=== PATIENT | male | born 1985 | race Caucasian/White ===

== ENCOUNTER 2017-05-08 16:33 | Inpatient (IN) | payer MEDICAID, OTHER ==
[~2017-05-08] VITALS: Ht 180.3 cm; Wt 74.0 kg
[2017-05-08] MEDS ORDERED: ONDANSETRON 2MG/ML, 2ML IVPush ONE (17:00)
[2017-05-08] MEDS ORDERED: MORPHINE SULFATE 4 MG/ML, 1ML IVPush PRN (17:00)
[2017-05-08] MEDS ORDERED: SODIUM CHLORIDE FLUSH 10ML SYR IVF ONE ×2 (17:00→19:00)
[2017-05-08] MEDS ORDERED: SODIUM CHLORIDE 0.9% 1,000ML IVBOLUS ONE (17:00)
[2017-05-08 17:12] LABS: BASOPHILS # (AUTO) 0.03 x10^3/uL (0-0.1); BASOPHILS % (AUTO) 0 % (0-1); EOSINOPHILS # (AUTO) 0.12 x10^3/uL (0-0.4); EOSINOPHILS % (AUTO) 2 % (1-7); LYMPHOCYTES # (AUTO) 0.83 x10^3/uL (1-3.4); LYMPHOCYTES % (AUTO) 11 % (22-44); MD NO; MEAN CORPUSCULAR HEMOGLOBIN 32.4 pg (27.5-34.5); MEAN CORPUSCULAR HGB CONC 34.1 g/dL (33.2-36.2); MEAN CORPUSCULAR VOLUME 95.1 fL (81-97); MEAN PLATELET VOLUME 7.1 fL (7.4-10.4); MONOCYTES # (AUTO) 0.56 x10^3/uL (0.2-0.8); MONOCYTES % (AUTO) 8 % (2-9); NEUTROPHILS # (AUTO) 5.81 x10^3/uL (1.8-6.8); NEUTROPHILS % (AUTO) 79 % (42-75); PLATELET COUNT 282 x10^3/uL (130-400); RED BLOOD COUNT 4.18 x10^6/uL (4.38-5.82); RED CELL DISTRIBUTION WIDTH 12.9 % (9.4-14.8)
[2017-05-08 17:24] LABS: ALBUMIN 3.1 g/dL (3.4-5.0); ANION GAP 12 mmol/L (5-15); CALCIUM 8.7 mg/dL (8.5-10.1); CHLORIDE 102 mmol/L (98-107); CREATININE 0.64 mg/dL (0.7-1.3)
[2017-05-08] MEDS ORDERED: OMNIPAQUE 350 MG/ML, 75ML BOTTLE ONE (17:49)
[2017-05-08] MEDS ORDERED: AMPICILLIN/SULBACTAM 3 GM in SODIUM CHLORIDE 0.9% 100 ML IV ONE (18:30)
[2017-05-08] MEDS ORDERED: VANCOMYCIN PER PHARMACY MC PRN ×2 (18:30→20:30)
[2017-05-08] MEDS ORDERED: VANCOMYCIN 1,400 MG in SODIUM CHLORIDE 0.9% 250 ML IV ONE (18:30)
[2017-05-08] MEDS ORDERED: MAGNESIUM SULFATE 1 GM, FOLIC ACID 1 MG, MVI ADULT 10 ML in SODIUM CHLORIDE 0.9% 1,000 ML IV ONE (19:00)
[2017-05-08] MEDS ORDERED: THIAMINE 100MG TABLET PO ONE (19:00)
[2017-05-08] MEDS ORDERED: LORazepam 2 MG/ML, 1ML IVPush PRN (19:00)
[2017-05-08] MEDS ORDERED: THIAMINE 100MG TABLET ONE (19:57)
[2017-05-08] MEDS ORDERED: POTASSIUM CHLORIDE 20 MEQ, MAGNESIUM SULFATE 2 GM, MVI ADULT 10 ML, FOLIC ACID 1 MG in ... IV SCH (20:21)
[2017-05-08 20:30] VITALS: BP 128/81
[2017-05-08] MEDS ORDERED: ACETAMINOPHEN 325 MG TABLET PO PRN (20:30)
[2017-05-08] MEDS ORDERED: LORazepam 2 MG/ML, 1ML IV PRN ×4 (20:30)
[2017-05-08] MEDS ORDERED: ENOXAPARIN 40 MG/0.4 ML SQ SCH (20:30)
[2017-05-08] MEDS ORDERED: DOCUSATE 100 MG CAPSULE PO PRN (20:30)
[2017-05-08] MEDS ORDERED: hydrALAzine 20 MG/ML, 1ML IVPush PRN (20:30)
[2017-05-08] MEDS ORDERED: ONDANSETRON 2MG/ML, 2ML IVPush PRN (20:30)
[2017-05-08] MEDS: D5%-0.9% NACL 1,000 ML IV SCH (20:45)
[2017-05-08] MEDS ORDERED: KETOROLAC 30 MG/1 ML IVPush PRN (21:00)
[2017-05-08] MEDS: LORazepam 2 MG/ML, 1ML IV PRN (21:17)
[2017-05-08] MEDS ORDERED: PHARMACOKINETIC CONSULTATION MC ONE (21:30)
[2017-05-08] MEDS ORDERED: PHARMACOKINETIC MONITORING MC PRN (21:30)
[2017-05-09] MEDS: AMPICILLIN/SULBACTAM 3 GM in SODIUM CHLORIDE 0.9% 100 ML IV SCH ×2 (03:01→11:43)
[2017-05-09 03:15] VITALS: BP 157/98
[2017-05-09] MEDS: D5%-0.9% NACL 1,000 ML IV SCH ×2 (03:40→08:02)
[2017-05-09 05:46] LABS: ALBUMIN 2.4 g/dL (3.4-5.0); ANION GAP 6 mmol/L (5-15); CALCIUM 7.9 mg/dL (8.5-10.1); CHLORIDE 106 mmol/L (98-107)
[2017-05-09 05:51] LABS: ALANINE AMINOTRANSFERASE 72 U/L (12-78); ALKALINE PHOSPHATASE 93 U/L (45-117); BILIRUBIN,TOTAL 0.4 mg/dL (0.2-1.0); CREATININE 0.55 mg/dL (0.7-1.3); TOTAL PROTEIN 6.3 g/dL (6.4-8.2)
[2017-05-09 06:02] LABS: BASOPHILS # (AUTO) 0.03 x10^3/uL (0-0.1); BASOPHILS % (AUTO) 1 % (0-1); EOSINOPHILS # (AUTO) 0.22 x10^3/uL (0-0.4); EOSINOPHILS % (AUTO) 4 % (1-7); LYMPHOCYTES # (AUTO) 0.98 x10^3/uL (1-3.4); LYMPHOCYTES % (AUTO) 18 % (22-44); MD NO; MEAN CORPUSCULAR HEMOGLOBIN 32.6 pg (27.5-34.5); MEAN PLATELET VOLUME 7.6 fL (7.4-10.4); MONOCYTES # (AUTO) 0.78 x10^3/uL (0.2-0.8); MONOCYTES % (AUTO) 14 % (2-9); NEUTROPHILS # (AUTO) 3.51 x10^3/uL (1.8-6.8); NEUTROPHILS % (AUTO) 64 % (42-75); PLATELET COUNT 227 x10^3/uL (130-400); RED CELL DISTRIBUTION WIDTH 12.5 % (9.4-14.8)
[2017-05-09 07:15] VITALS: BP 164/109
[2017-05-09] MEDS ORDERED: VANCOMYCIN 1,400 MG in SODIUM CHLORIDE 0.9% 250 ML IV SCH (07:30)
[2017-05-09] MEDS: LORazepam 2 MG/ML, 1ML IV PRN (08:01)
[2017-05-09] MEDS ORDERED: THIAMINE 100MG TABLET PO SCH (09:00)
[2017-05-09] MEDS ORDERED: MORPHINE SULFATE 4 MG/ML, 1ML ONE (09:29)
[2017-05-09] MEDS ORDERED: MORPHINE SULFATE 4 MG/ML, 1ML IVPush ONE (09:30)
[2017-05-09 10:17] VITALS: BP 159/90
[2017-05-09] MEDS ORDERED: morphine SULFATE 10 MG/ML, 1ML IVPush PRN (12:30)
== END 2017-05-09 13:10 | disposition left against medical advice (07) | DRG 602 ==
LOC: ED 18:58 → EDIP 19:21 → 4NOR 20:08
PROVIDERS: ADMIT Hospitalist; ATTEND Hospitalist
DX: L03.313 Cellulitis of chest wall (principal); E43 Unspecified severe protein-calorie malnutrition; D64.9 Anemia, unspecified; F10.10 Alcohol abuse, uncomplicated; F17.210 Nicotine dependence, cigarettes, uncomplicated; F11.90 Opioid use, unspecified, uncomplicated; Z59.0 Homelessness; Z68.21 Body mass index [BMI] 21.0-21.9, adult
CPT/HCPCS: 36415; 71260; 80048; 80053; 80307; 82040; 83605; 83735; 84100; 84145; 85025; 87040; 93306; 96361; 96365; 96375; J0295; J1650; J1885; J2405; J3370; J3475; J7042; Q9967; J2060; J7030; J7050

== ENCOUNTER 2018-03-25 12:28 | Inpatient (IN) | payer MEDICAID, OTHER ==
[~2018-03-25] VITALS: Ht 180.3 cm; Wt 83.3 kg
[2018-03-25 13:25] LABS: BASOPHILS # (AUTO) 0.03 x10^3/uL (0-0.1); BASOPHILS % (AUTO) 0 % (0-1); EOSINOPHILS % (AUTO) 0 % (1-7); LYMPHOCYTES # (AUTO) 0.52 x10^3/uL (1-3.4); LYMPHOCYTES % (AUTO) 7 % (22-44); MD NO; MEAN CORPUSCULAR HEMOGLOBIN 31.6 pg (27.5-34.5); MEAN CORPUSCULAR HGB CONC 34.8 g/dL (33.2-36.2); MEAN CORPUSCULAR VOLUME 90.9 fL (81-97); MEAN PLATELET VOLUME 6.8 fL (7.4-10.4); MONOCYTES # (AUTO) 0.39 x10^3/uL (0.2-0.8); MONOCYTES % (AUTO) 5 % (2-9); NEUTROPHILS # (AUTO) 6.62 x10^3/uL (1.8-6.8); NEUTROPHILS % (AUTO) 88 % (42-75); PLATELET COUNT 181 x10^3/uL (130-400); RED BLOOD COUNT 5.55 x10^6/uL (4.38-5.82); RED CELL DISTRIBUTION WIDTH 14.3 % (9.4-14.8)
[2018-03-25] MEDS ORDERED: SODIUM CHLORIDE FLUSH 10ML SYR IVF ONE (13:30)
[2018-03-25] MEDS ORDERED: SODIUM CHLORIDE 0.9% 1,000ML IVBOLUS ONE (13:30)
[2018-03-25] MEDS ORDERED: FAMOTIDINE 20 MG/2 ML IVP ONE (13:30)
[2018-03-25] MEDS ORDERED: ONDANSETRON 2MG/ML, 2ML IVPush ONE (13:30)
[2018-03-25] MEDS ORDERED: MAALOX/HYOSCYAMINE/LIDOCAINE 45 ML BTL PO ONE (13:30)
[2018-03-25 13:39] LABS: ALANINE AMINOTRANSFERASE 71 U/L (12-78); ALBUMIN 4.6 g/dL (3.4-5.0); ANION GAP 18 mmol/L (5-15); CALCIUM 9.3 mg/dL (8.5-10.1); CHLORIDE 96 mmol/L (98-107); CREATININE 0.91 mg/dL (0.7-1.3)
[2018-03-25 13:41] LABS: ALKALINE PHOSPHATASE 119 U/L (45-117); BILIRUBIN,TOTAL 0.8 mg/dL (0.2-1.0)
--- NOTE | 2018-03-25 13:41 | NUR ---
PT ARRIVES TO ED VIA EMS, PT REPORTS HE HAS BEEN ILL FOR A FEW DAYS WITH NO RELIEF. PT REPORTS THAT HE DRANK 1/2 A PINT YESTERDAY. PT DENIES TRUAMA. THINKS HE IS ILL WITH THE FLU. PT REPORTS NOT SEEIGN PCP. PT WAS WALKIGN AROUND DOWNTOWN WHEN HE BECAME ILL. PT CONNECTED TO [employer] AND CALL LIGHT IN REACH, PIV TO BE STARTED.
[2018-03-25] MEDS ORDERED: MAALOX/HYOSCYAMINE/LIDOCAINE 45 ML BTL ONE (13:48)
[2018-03-25] MEDS ORDERED: FAMOTIDINE 20 MG/2 ML ONE (13:48)
[2018-03-25] MEDS ORDERED: ONDANSETRON 2MG/ML, 2ML ONE (13:48)
--- NOTE | 2018-03-25 14:43 | NUR ---
MEDICATED PER EMAR.
--- NOTE | 2018-03-25 14:59 | NUR ---
PT RESTING IN ROOM, AWAITING FURTHER ORDERS.
--- NOTE | 2018-03-25 15:23 | NUR ---
CHART UP FOR RECHECK
[2018-03-25] MEDS ORDERED: LORazepam 2 MG/ML, 1ML ONE ×2 (15:25→17:34)
[2018-03-25] MEDS ORDERED: LORazepam 2 MG/ML, 1ML IVPush PRN (15:30)
[2018-03-25] MEDS ORDERED: THIAMINE 100 MG in SODIUM CHLORIDE 0.9% 50 ML IVPB ONE (15:30)
--- NOTE | 2018-03-25 15:33 | NUR ---
PT STARTED TO DRY HEAVE AND THIS RN NOTICED HIS HR IN 120'S, PT ASKED TO PLEASE MAKE SURE TO CLARIFY ETOH RECENT AND FORMER USE, PT REPORTED " IM NOT GONNA LIE TO YOU BROTHER I HAVE BEEN DRINKING 7 PINTS A DAY AND YESTERDAY AND TODAY I ONLY HAD 1/2 A PINT. BUT IM TRYING TO WEAN MYSELF OFF OF IT." PT REPORTS THAT HE HAS NOT USED HEROINE IN 15 MONTHS THOUGH.
[2018-03-25] MEDS ORDERED: SODIUM CHLORIDE FLUSH 10ML SYR IVF PRN (16:30)
[2018-03-25] MEDS ORDERED: POTASSIUM CHLORIDE 20 MEQ TAB.ER.PRT PO ONE ×2 (17:00)
[2018-03-25] MEDS ORDERED: LORazepam 1MG TABLET PO PRN ×4 (17:00)
[2018-03-25] MEDS ORDERED: LORazepam 2 MG/ML, 1ML IV PRN ×3 (17:00)
[2018-03-25] MEDS ORDERED: PANTOPRAZOLE 40 MG IV ONE (17:29)
[2018-03-25] MEDS ORDERED: POTASSIUM CHLORIDE 20 MEQ TAB.ER.PRT ONE (17:29)
[2018-03-25] MEDS ORDERED: POLYETHYLENE GLYCOL 17 GM PACKET PO PRN (17:30)
[2018-03-25] MEDS ORDERED: LABETALOL 5MG/ML, 20ML IVPush PRN (17:30)
[2018-03-25] MEDS: LORazepam 2 MG/ML, 1ML IV PRN ×2 (17:37→20:26)
[2018-03-25] MEDS: SODIUM CHLORIDE 0.9% 1,000 ML IV SCH (17:37)
[2018-03-25] MEDS: PANTOPRAZOLE 40 MG IV IVPush SCH (17:37)
--- NOTE | 2018-03-25 17:38 | NUR ---
SM ONLY WANTS 40MEQ POTASSIUM AT THIS TIME.
--- NOTE | 2018-03-25 18:04 | NUR ---
Break RN: Pt has very mild tremors, A&O x4, reports nausea improved. Waiting on ready room - pt updated.
[2018-03-25 18:12] LABS: FREE T4 (FREE THYROXINE) 0.93 ng/dL (0.76-1.46)
[2018-03-25 19:27] VITALS: BP 165/96
[2018-03-25] MEDS: CHLORDIAZEPOXIDE 25 MG CAPSULE PO PRN (19:35)
[2018-03-25] MEDS: ONDANSETRON ODT 4 MG PO PRN (19:35)
[2018-03-25] MEDS: POTASSIUM CHLORIDE 20 MEQ, MAGNESIUM SULFATE 1 GM, FOLIC ACID 1 MG, THIAMINE 200 MG, MV... IV SCH (19:50)
[2018-03-26] MEDS: LORazepam 2 MG/ML, 1ML IV PRN ×6 (00:34→20:44)
[2018-03-26] MEDS: ONDANSETRON ODT 4 MG PO PRN ×4 (00:34→17:21)
[2018-03-26 00:51] VITALS: BP 161/95
[2018-03-26] MEDS ORDERED: MAGNESIUM SULFATE PMX 2GM/50ML 50 ML IV ONE (02:00)
[2018-03-26] MEDS: PANTOPRAZOLE 40 MG IV IVPush SCH ×2 (04:58→17:27)
[2018-03-26] MEDS: CHLORDIAZEPOXIDE 25 MG CAPSULE PO PRN ×2 (06:15→20:07)
[2018-03-26 06:38] LABS: CHLORIDE 99 mmol/L (98-107)
[2018-03-26 06:51] LABS: ALANINE AMINOTRANSFERASE 51 U/L (12-78); ALBUMIN 3.8 g/dL (3.4-5.0); ALKALINE PHOSPHATASE 104 U/L (45-117); ANION GAP 9 mmol/L (5-15); BILIRUBIN,TOTAL 0.9 mg/dL (0.2-1.0); CALCIUM 8.2 mg/dL (8.5-10.1); CREATININE 0.77 mg/dL (0.7-1.3); TOTAL PROTEIN 7.6 g/dL (6.4-8.2)
[2018-03-26 07:20] VITALS: BP 147/96
[2018-03-26] MEDS: ONDANSETRON 2MG/ML, 2ML IVPush PRN ×3 (07:49→22:59)
[2018-03-26 08:00] LABS: BASOPHILS # (AUTO) 0.01 x10^3/uL (0-0.1); BASOPHILS % (AUTO) 0 % (0-1); EOSINOPHILS # (AUTO) 0.04 x10^3/uL (0-0.4); EOSINOPHILS % (AUTO) 1 % (1-7); LYMPHOCYTES # (AUTO) 0.86 x10^3/uL (1-3.4); LYMPHOCYTES % (AUTO) 25 % (22-44); MD NO; MEAN CORPUSCULAR HEMOGLOBIN 31.1 pg (27.5-34.5); MEAN CORPUSCULAR VOLUME 91.4 fL (81-97); MONOCYTES # (AUTO) 0.31 x10^3/uL (0.2-0.8); MONOCYTES % (AUTO) 9 % (2-9); NEUTROPHILS # (AUTO) 2.28 x10^3/uL (1.8-6.8); NEUTROPHILS % (AUTO) 65 % (42-75); PLATELET COUNT 159 x10^3/uL (130-400); RED BLOOD COUNT 4.86 x10^6/uL (4.38-5.82); RED CELL DISTRIBUTION WIDTH 14.2 % (9.4-14.8)
[2018-03-26] MEDS: SENNA/DOCUSATE TABLET PO SCH (09:00)
[2018-03-26] MEDS ORDERED: POTASSIUM CHLORIDE 20 MEQ TAB.ER.PRT PO ONE ×2 (10:00→12:30)
[2018-03-26] MEDS: SODIUM CHLORIDE 0.9% 1,000 ML IV SCH ×2 (11:59→17:29)
[2018-03-26 13:35] VITALS: BP 146/81
[2018-03-26 20:31] VITALS: BP 128/77
[2018-03-26] MEDS: POTASSIUM CHLORIDE 20 MEQ, MAGNESIUM SULFATE 1 GM, FOLIC ACID 1 MG, THIAMINE 200 MG, MV... IV SCH (20:45)
[2018-03-26] MEDS: NICOTINE 21 MG/24 HR PATCH.TD24 TD SCH (20:45)
[2018-03-27] MEDS: LORazepam 2 MG/ML, 1ML IV PRN ×6 (00:50→22:05)
[2018-03-27] MEDS ORDERED: ACETAMINOPHEN 325 MG TABLET PO ONE (01:00)
[2018-03-27 01:50] VITALS: BP 122/64
[2018-03-27] MEDS: PANTOPRAZOLE 40 MG IV IVPush SCH ×2 (04:54→16:51)
[2018-03-27] MEDS: ONDANSETRON 2MG/ML, 2ML IVPush PRN ×2 (04:54→22:04)
[2018-03-27 06:35] VITALS: BP 133/77
[2018-03-27 08:24] LABS: ALANINE AMINOTRANSFERASE 40 U/L (12-78); ALBUMIN 3.3 g/dL (3.4-5.0); ANION GAP 7 mmol/L (5-15); CALCIUM 8.3 mg/dL (8.5-10.1); CHLORIDE 108 mmol/L (98-107); CREATININE 0.77 mg/dL (0.7-1.3)
[2018-03-27 08:27] LABS: ALKALINE PHOSPHATASE 90 U/L (45-117); BILIRUBIN,TOTAL 0.9 mg/dL (0.2-1.0); TOTAL PROTEIN 6.7 g/dL (6.4-8.2)
[2018-03-27] MEDS: SENNA/DOCUSATE TABLET PO SCH (09:00)
[2018-03-27] MEDS: SODIUM CHLORIDE 0.9% 1,000 ML IV SCH ×2 (09:01→16:51)
[2018-03-27 09:19] LABS: BASOPHILS # (AUTO) 0.03 x10^3/uL (0-0.1); BASOPHILS % (AUTO) 1 % (0-1); EOSINOPHILS % (AUTO) 2 % (1-7); LYMPHOCYTES # (AUTO) 0.81 x10^3/uL (1-3.4); LYMPHOCYTES % (AUTO) 20 % (22-44); MD NO; MEAN CORPUSCULAR HEMOGLOBIN 31.3 pg (27.5-34.5); MEAN CORPUSCULAR HGB CONC 34.4 g/dL (33.2-36.2); MEAN PLATELET VOLUME 7.6 fL (7.4-10.4); MONOCYTES # (AUTO) 0.31 x10^3/uL (0.2-0.8); MONOCYTES % (AUTO) 8 % (2-9); NEUTROPHILS # (AUTO) 2.76 x10^3/uL (1.8-6.8); NEUTROPHILS % (AUTO) 69 % (42-75); PLATELET COUNT 140 x10^3/uL (130-400); RED BLOOD COUNT 4.55 x10^6/uL (4.38-5.82); RED CELL DISTRIBUTION WIDTH 14.5 % (9.4-14.8)
[2018-03-27] MEDS: ONDANSETRON ODT 4 MG PO PRN (12:13)
[2018-03-27 13:18] VITALS: BP 129/71
[2018-03-27] MEDS: CHLORDIAZEPOXIDE 25 MG CAPSULE PO PRN (15:32)
[2018-03-27 19:44] VITALS: BP 138/84
[2018-03-27] MEDS: POTASSIUM CHLORIDE 20 MEQ, MAGNESIUM SULFATE 1 GM, FOLIC ACID 1 MG, THIAMINE 200 MG, MV... IV SCH (21:56)
[2018-03-27] MEDS: NICOTINE 21 MG/24 HR PATCH.TD24 TD SCH (21:56)
[2018-03-28] MEDS: LORazepam 2 MG/ML, 1ML IV PRN ×2 (02:07→06:13)
[2018-03-28 04:05] VITALS: BP 124/78
[2018-03-28 06:07] LABS: BASOPHILS # (AUTO) 0.01 x10^3/uL (0-0.1); BASOPHILS % (AUTO) 0 % (0-1); EOSINOPHILS # (AUTO) 0.09 x10^3/uL (0-0.4); EOSINOPHILS % (AUTO) 2 % (1-7); LYMPHOCYTES # (AUTO) 0.89 x10^3/uL (1-3.4); LYMPHOCYTES % (AUTO) 19 % (22-44); MD NO; MEAN CORPUSCULAR HGB CONC 34.8 g/dL (33.2-36.2); MEAN CORPUSCULAR VOLUME 91.8 fL (81-97); MEAN PLATELET VOLUME 7.7 fL (7.4-10.4); MONOCYTES # (AUTO) 0.32 x10^3/uL (0.2-0.8); MONOCYTES % (AUTO) 7 % (2-9); NEUTROPHILS # (AUTO) 3.49 x10^3/uL (1.8-6.8); NEUTROPHILS % (AUTO) 73 % (42-75); PLATELET COUNT 132 x10^3/uL (130-400); RED BLOOD COUNT 4.26 x10^6/uL (4.38-5.82); RED CELL DISTRIBUTION WIDTH 14.4 % (9.4-14.8)
[2018-03-28] MEDS: SODIUM CHLORIDE 0.9% 1,000 ML IV SCH ×2 (06:13→14:35)
[2018-03-28] MEDS: ONDANSETRON 2MG/ML, 2ML IVPush PRN (06:13)
[2018-03-28] MEDS: PANTOPRAZOLE 40 MG IV IVPush SCH ×2 (06:13→16:11)
[2018-03-28 06:17] LABS: CHLORIDE 107 mmol/L (98-107)
[2018-03-28 06:31] LABS: ALANINE AMINOTRANSFERASE 35 U/L (12-78); ALBUMIN 3.4 g/dL (3.4-5.0); ALKALINE PHOSPHATASE 78 U/L (45-117); ANION GAP 7 mmol/L (5-15); BILIRUBIN,TOTAL 0.5 mg/dL (0.2-1.0); CALCIUM 8.7 mg/dL (8.5-10.1); CREATININE 0.71 mg/dL (0.7-1.3); TOTAL PROTEIN 6.4 g/dL (6.4-8.2)
[2018-03-28 07:47] VITALS: BP 125/71
[2018-03-28] MEDS: NICOTINE 21 MG/24 HR PATCH.TD24 TD SCH (08:12)
[2018-03-28] MEDS: SENNA/DOCUSATE TABLET PO SCH (08:13)
[2018-03-28] MEDS: CHLORDIAZEPOXIDE 25 MG CAPSULE PO SCH ×3 (08:13→20:01)
[2018-03-28 12:55] VITALS: BP 134/80
[2018-03-28] MEDS: LORazepam 0.5MG TABLET PO PRN ×2 (14:44→20:01)
[2018-03-28] MEDS: SUCRALFATE 1 GM/10 ML UDC PO SCH ×2 (16:11→20:01)
[2018-03-28] MEDS: POTASSIUM CHLORIDE 20 MEQ, MAGNESIUM SULFATE 1 GM, FOLIC ACID 1 MG, THIAMINE 200 MG, MV... IV SCH (20:02)
[2018-03-28 21:40] VITALS: BP 128/76
[2018-03-29 00:32] VITALS: BP 150/97
[2018-03-29] MEDS: ONDANSETRON ODT 4 MG PO PRN (00:42)
[2018-03-29] MEDS: LORazepam 0.5MG TABLET PO PRN (00:42)
[2018-03-29] MEDS: PANTOPRAZOLE 40 MG IV IVPush SCH (04:57)
[2018-03-29 06:17] LABS: BASOPHILS # (AUTO) 0.02 x10^3/uL (0-0.1); BASOPHILS % (AUTO) 0 % (0-1); EOSINOPHILS # (AUTO) 0.11 x10^3/uL (0-0.4); EOSINOPHILS % (AUTO) 2 % (1-7); LYMPHOCYTES # (AUTO) 0.79 x10^3/uL (1-3.4); LYMPHOCYTES % (AUTO) 15 % (22-44); MD NO; MEAN CORPUSCULAR HEMOGLOBIN 31.7 pg (27.5-34.5); MEAN CORPUSCULAR HGB CONC 34.6 g/dL (33.2-36.2); MEAN CORPUSCULAR VOLUME 91.7 fL (81-97); MEAN PLATELET VOLUME 7.7 fL (7.4-10.4); MONOCYTES # (AUTO) 0.38 x10^3/uL (0.2-0.8); MONOCYTES % (AUTO) 7 % (2-9); NEUTROPHILS # (AUTO) 3.98 x10^3/uL (1.8-6.8); NEUTROPHILS % (AUTO) 76 % (42-75); PLATELET COUNT 129 x10^3/uL (130-400); RED BLOOD COUNT 4.25 x10^6/uL (4.38-5.82); RED CELL DISTRIBUTION WIDTH 14.3 % (9.4-14.8)
[2018-03-29 06:26] LABS: CHLORIDE 107 mmol/L (98-107)
[2018-03-29 06:34] LABS: ALANINE AMINOTRANSFERASE 36 U/L (12-78); ALBUMIN 3.5 g/dL (3.4-5.0); ALKALINE PHOSPHATASE 81 U/L (45-117); BILIRUBIN,TOTAL 0.5 mg/dL (0.2-1.0); CALCIUM 8.6 mg/dL (8.5-10.1); CREATININE 0.79 mg/dL (0.7-1.3); TOTAL PROTEIN 6.9 g/dL (6.4-8.2)
[2018-03-29 06:49] LABS: ANION GAP 5 mmol/L (5-15)
[2018-03-29 07:46] VITALS: BP 149/82
[2018-03-29] MEDS: SUCRALFATE 1 GM/10 ML UDC PO SCH ×2 (08:16→10:45)
[2018-03-29] MEDS: SENNA/DOCUSATE TABLET PO SCH (08:17)
[2018-03-29] MEDS: SODIUM CHLORIDE 0.9% 1,000 ML IV SCH (08:17)
[2018-03-29] MEDS: NICOTINE 21 MG/24 HR PATCH.TD24 TD SCH (08:18)
[2018-03-29] MEDS ORDERED: CHLORDIAZEPOXIDE 25 MG CAPSULE PO SCH (09:00)
[2018-03-29 12:01] VITALS: BP 131/78
[2018-03-30] MEDS ORDERED: CHLORDIAZEPOXIDE 25 MG CAPSULE PO SCH (09:00)
== END 2018-03-29 14:42 | disposition left against medical advice (07) | DRG 641 ==
LOC: ED 14:52 → EDIP 16:26 → 4WST 18:48
PROVIDERS: ADMIT Hospitalist; ATTEND Hospitalist
DX: E87.1 Hypo-osmolality and hyponatremia (principal); F10.239 Alcohol dependence with withdrawal, unspecified; F10.229 Alcohol dependence with intoxication, unspecified; I10 Essential (primary) hypertension; E87.6 Hypokalemia; E86.0 Dehydration; R56.9 Unspecified convulsions; Z87.891 Personal history of nicotine dependence; Z53.21 Procedure and treatment not carried out due to patient leaving prior to being seen by health care provider
CPT/HCPCS: 36415; 99285; J3490; J7042; 80053; 83690; 83735; 84100; 84439; 84443; 85025; 96365; 96366; 96375; G0378; J2405; J3411; J3475; J3480; Q0162; C9113; J2060; J7030